=== PATIENT | female | born 1950 | race Caucasian/White ===

== ENCOUNTER → 2016-07-15 | Outpatient (CLI) | payer MEDICAID | LOC: FIMAGING 15:31 | PROVIDERS: ATTEND Radiology Diagnostic Radiology | DX: M24.10 Other articular cartilage disorders, unspecified site (principal); M25.461 Effusion, right knee ==

== ENCOUNTER 2016-09-18 12:52 | Emergency (ER) | payer MEDICAID ==
--- NOTE | 2016-09-18 13:13 | EDPHY ---
H & P Stated Complaint: dizzyness x 3 days/started on wellbutrin 2 weeks ago Time Seen by Provider: 09/18/16 13:10 HPI/ROS: CHIEF COMPLAINT: Dizziness HISTORY OF PRESENT ILLNESS: This patient is a 66 year old female arriving today by private vehicle complaining of dizziness onset on Monday, three days ago. She states she is frustrated because the sensation is keeping her from accomplishing anything. She has recently stopped taking Cymbalta, and began taking Wellbutrin instead about two weeks ago as prescribed by her primary care provider at [facility]. She denies other recent changes in medications. She describes her current sensation of dizziness as lightheadedness and a feeling of being off-balance, with occasional waves of "some kind of dizziness". The sensation is worse with movement and with deep breathing. She endorses episodes of spinning vertigo in the past, but states her current feeling is different. She reports she has experience mild tinnitus over the past two months, and that she has experienced numbness and paresthesias in her hands and feet for the last weeks, no recent change. She denies shortness of breath, but states that she feels like she hasn' t been getting enough oxygen. She denies chest pain, vomiting, hematochezia, fever, or recent illness. She endorses occasional diarrhea. REVIEW OF SYSTEMS: A ten point review of systems was performed and is negative with the exception of the items mentioned in the HPI. - Personal History Current Tetanus/Diphtheria Vaccine: Yes - Medical/Surgical History PMH: 1. Chronic neck pain. Hx Asthma: No Hx Chronic Respiratory Disease: No Hx Diabetes: No Hx Cardiac Disease: No Hx Renal Disease: No Hx Cirrhosis: No Hx Alcoholism: No Hx HIV/AIDS: No Hx Splenectomy or Spleen Trauma: No Other PMH: DDD, degenerative changes back and neck - Social History Smoking Status: Former smoker Additional Social History: Nonsmoker. Non drinker. Lives alone in apartment complex. - Physical Exam Exam: General Appearance: Alert. Vital signs reviewed. Blood pressure 141/73 Eyes: Pupils equal and round, no conjunctival injection, no discharge. Anicteric. ENT, Mouth: Mucous membranes are moist, no oropharyngeal erythema or edema. Neck: No lymphadenopathy, supple. Respiratory: Lungs are clear to auscultation; no wheezes, rales, or rhonchi. Cardiovascular: Regular rate and rhythm; no murmur, rub, or gallop. Gastrointestinal: Abdomen is soft and nontender, no masses or organomegaly, bowel sounds normal. Skin: Warm and dry, no rashes on exposed skin, normal color. Back: Nontender to palpation over the thoracolumbar spine. No CVAT. Extremities: No lower extremity edema, no calf tenderness or swelling. Neurological: Alert and oriented. Moving all four extremities easily and equally. Cranial nerves II through XII are examined and are intact (visual acuity not tested). Strength is 5 over 5 bilaterally with testing of all major motor groups. Sensation is intact to light touch over all 4 extremities. Deep tendon reflexes are 2+ in the biceps and knees bilaterally. Gait is normal. [id number] is performed accurately. Psychiatric: Normal affect. Constitutional: Initial Vital Signs Temperature (C) 36.6 C 09/18/16 12:59 Heart Rate 94 09/18/16 12:59 Respiratory Rate 18 09/18/16 12:59 Blood Pressure 141/73 H 09/18/16 12:59 O2 Sat (%) 95 09/18/16 12:59 O2 Delivery Mode Room Air Allergies/Adverse Reactions: No Known Allergies Allergy (Verified 09/18/16 12:58) Home Medications: Medication Instructions Recorded Wellbutrin 100mg (*) 09/18/16 Medical Decision Making - Diagnostics EKG Interpretation: The 12 lead EKG was interpreted by myself. See hard copy and/or "tracemaster" electronic copy for interpretation. Sinus rhythm, rate 95. ED Course/Re-evaluation: This patient is a 66 year old female presenting today with a three day history of dizziness. Physical exam is unremarkable. Plan for EKG and labs including CBC, chemistries , and troponin. She reports her dizziness is both a sensation of lightheadedness and occasionally there is some spinning involved. Will try a dose of oral meclizine. Patient re-examined at 2:30 p.m. Labs have been reviewed and are normal. Orthostatic vital signs are normal. She states she is feeling worse currently. Discussed discharge. The patient would like to drive herself home. Offered CT scan of the head to rule out acute processes causing her dizziness. She refuses imaging at this time. Tested standing, gait. When she is walking, she notes increased dizziness "inside her head". It is possible that her dizziness is related to the wellbutrin that she recently started and she has stopped taking that medicaton. It does not seem to be vertigo. I do not find signs of infection (sinus, ear) and do not suspect meningitis. I doubt intracranial hemorrhage or tumor, but these have not been completely ruled out. Neuro exam is normal. Patient reassessed at 3:15pm. She mentioned that she has run out of her oxycodone that she uses to control her chronic neck pain. I informed her I am unable to write her a prescription for oxycodone today, and she should follow up with her pain management provider to discuss this. She states she has an upcoming appointment with a pain clinic, which I encouraged her to keep. She will be discharged home with instructions to follow up with her primary care provider to discuss her medication regimen, and a referral to ENT as needed should her dizziness persist. Return precautions discussed. The patient is comfortable with this plan. Differential Diagnosis: Dizziness including but not limited to peripheral and central causes of vertigo , orthostatic causes including dehydration, and blood loss. Drug seeking is also a possibility, as she has run out of her opiate medication. No signs / symptoms of withdrawal. - Data Points Laboratory Results: Laboratory Results 09/18/16 13:35 09/18/16 13:35 Medications Given: Discontinued Medications Meclizine HCl (Meclizine Hcl) 25 mg PO EDNOW ONE Stop: 09/18/16 13:30 Last Admin: 09/18/16 14:09 Dose: 25 mg Departure - Departure Disposition: Home, Routine, Self-Care Clinical Impression: Dizziness Condition: Good Instructions: Dizziness (ED) Additional Instructions: 1. Follow up with your primary care provider as needed next week to discuss your symptoms and medication regimen. 2. Keep your appointment with the pain clinic as scheduled. 3. If you continue to experience unresolved dizziness, we have referred you to the ENT physician python developer to further evaluate your symptoms. 4. Return to the ED if you experience weakness or numbness on one side of your body, slurred speech, fever, vomiting, or other worsening of condition. Referrals: [facility],. [Clinic] - As per Instructions Shen Dorman MD [Medical Doctor] - As per Instructions Report Scribed for: Chrissy Mix Report Scribed by: Tara Og Date of Report: 09/18/16 Time of Report: 13:35 Physician Review and Approval Statement: 09/18/16 13:13 Portions of this note were transcribed by the nurses medical assistants phlebotomists. I, Dr. Chrissy Mix, personally performed the history, physical exam, and medical decision- making; and confirmed the accuracy of the information in the transcribed note.
[2016-09-18] MEDS ORDERED: MECLIZINE HCL 25 MG TAB PO ONE (13:29)
[2016-09-18 13:48] LABS: % IMMATURE GRANULYOCYTES 0.1 % (0.0-1.1); ABSOLUTE IMMATURE GRANULOCYTES 0.01 10^3/uL (0.00-0.10); ADD DIFF? NO; ADD MORPH? NO; ADD SCAN? NO; ATYPICAL LYMPHOCYTE FLAG 20 (0-99); FRAGMENT RBC FLAG 0 (0-99); HEMATOCRIT 43.3 % (38.0-47.0); HEMOGLOBIN 14.7 g/dL (12.6-16.3); LEFT SHIFT FLG 0 (0-99); LIPEMIA HEMOLYSIS FLAG 90 (0-99); MEAN CELL HEMOGLOBIN 29.8 pg (27.9-34.1); MEAN CELL HEMOGLOBIN CONCENTR. 33.9 g/dL (32.4-36.7); MEAN CELL VOLUME 87.8 fL (81.5-99.8); MEAN PLATELET VOLUME 11.6 fL (8.7-11.7); PLATELET CLUMPS FLAG 0 (0-99); PLATELET COUNT 312 10^3/uL (150-400); RED BLOOD CELL COUNT 4.93 10^6/uL (4.18-5.33); RED CELL DISTRIBUTION WIDTH 13.2 % (11.5-15.2)
--- NOTE | 2016-09-18 13:54 | CPEKG ---
Heart Rate: 95 RR Interval: 632 P-R Interval: 152 QRSD Interval: 82 QT Interval: 376 QTC Interval: 473 P [place]: 41 QRS [place]: 72 T Wave [place]: -23 EKG Severity - ABNORMAL ECG - EKG Impression: SINUS RHYTHM EKG Impression: BORDERLINE INFERIOR Q WAVES EKG Impression: NONSPECIFIC T ABNORMALITIES, INFERIOR LEADS EKG Impression: INFEROLATERAL ST/T WAVE CHANGES ARE NEW IN COMPARISON TO PRIOR Electronically Signed By: Temo Lin 22-Sep-2016 12:18:30
[2016-09-18 14:02] LABS: ANION GAP 11 mEq/L (8-16); CALCIUM 9.4 mg/dL (8.5-10.4); CARBON DIOXIDE 22 mEq/l (22-31); CHLORIDE 105 mEq/L (97-110); CREATININE 0.6 mg/dL (0.6-1.0); GLOMERULAR FILTRATION RATE > 60; GLUCOSE 90 mg/dL (70-100); POTASSIUM 3.7 mEq/L (3.5-5.2); SODIUM 138 mEq/L (134-144)
[2016-09-18 14:13] LABS: CREATINE KINASE-MB FRACTION 1.36 ng/mL (0-3.19); TROPONIN I < 0.012 ng/mL (0-0.034)
[2016-09-18 15:38] VITALS: BP 130/74; PULSE 80; RESP 14; TEMP 98.4; O2SAT 94
== END 2016-09-18 15:38 | disposition home or self-care (01) ==
DX: R42 Dizziness and giddiness (principal); Z87.891 Personal history of nicotine dependence

== ENCOUNTER → 2017-03-14 | Outpatient (CLI) | payer MEDICAID | LOC: FIMAGING 13:49 | DX: G89.29 Other chronic pain (principal); M51.37 Other intervertebral disc degeneration, lumbosacral region ==

== ENCOUNTER → 2017-05-16 | Outpatient (CLI) | payer MEDICAID | LOC: FIMAGING 14:21 | DX: M54.2 Cervicalgia (principal); M54.5 Low back pain; M50.30 Other cervical disc degeneration, unspecified cervical region; R53.82 Chronic fatigue, unspecified; G89.4 Chronic pain syndrome; M48.02 Spinal stenosis, cervical region; M40.204 Unspecified kyphosis, thoracic region; Z79.891 Long term (current) use of opiate analgesic ==

== ENCOUNTER 2017-11-23 13:01 | Emergency (ER) | payer OTHER, MEDICAID ==
[2017-11-23] MEDS ORDERED: NS 1,000 ML IV ONE (13:37)
[2017-11-23] MEDS ORDERED: IOPAMIDOL (ISOVUE-300) 100 ML BTL ONE (13:43)
--- NOTE | 2017-11-23 13:44 | EDPHY ---
H & P Stated Complaint: abd pain Time Seen by Provider: 11/23/17 13:24 HPI/ROS: CHIEF COMPLAINT: Abdominal distention HISTORY OF PRESENT ILLNESS: The patient is a 67-year-old female who comes to the emergency department complaining of abdominal distention for the last 3 years. She states that during the 1st year of her symptoms she had multiple tests including swallow studies and MRIs but no diagnosis was ultimately made. She has not pursued further workup over the last 2 years. She does state however that she saw Dr. Farrar 1 month ago and they want to do an upper endoscopy. She has not had a fever. She states that she was having some vomiting last week but has not since. She continues to have bowel movements that alternate between diarrhea and constipation. No urinary symptoms. No vaginal symptoms. She comes here today because she feels like no one is helping her. Symptoms have not worsened or changed. REVIEW OF SYSTEMS: Constitutional: denies: chills, fever, recent illness, recent injury EENTM: denies: blurred vision, double vision, nose congestion Respiratory: denies: cough, shortness of breath Cardiac: denies: chest pain, irregular heart rate, lightheadedness, palpitations Gastrointestinal/Abdominal: denies: abdominal pain, diarrhea, nausea, vomiting, blood streaked stools Genitourinary: denies: dysuria, frequency, hematuria, pain Musculoskeletal: denies: joint pain, muscle pain Skin: denies: lesions, rash, jaundice, bruising Neurological: denies: headache, numbness, paresthesia, tingling, dizziness, weakness Hematologic/Lymphatic: denies: blood clots, easy bleeding, easy bruising Immunologic/allergic: denies: HIV/AIDS, transplant EXAM: GENERAL: Well-appearing, well-nourished and in no acute distress. HEAD: Atraumatic, normocephalic. EYES: Pupils equal round and reactive to light, extraocular movements intact, sclera anicteric, conjunctiva are normal. ENT: TMs normal, nares patent, oropharynx clear without exudates. Moist mucous membranes. NECK: Normal range of motion, supple without lymphadenopathy or JVD. LUNGS: Breath sounds clear to auscultation bilaterally and equal. No wheezes rales or rhonchi. HEART: Regular rate and rhythm without murmurs, rubs or gallops. ABDOMEN: Distension, nontender BACK: No CVA tenderness, no spinal tenderness, step-offs or deformities EXTREMITIES: Normal range of motion, no pitting or edema. No clubbing or cyanosis. NEUROLOGICAL: Cranial nerves II through XII grossly intact. Normal speech, normal gait. 5/5 strength, normal movement in all extremities, normal sensation PSYCH: Normal mood, normal affect. SKIN: Warm, dry, normal turgor, no visible rashes or lesions. Source: Patient Exam Limitations: No limitations - Personal History Current Tetanus/Diphtheria Vaccine: Yes - Medical/Surgical History Hx Asthma: No Hx Chronic Respiratory Disease: No Hx Diabetes: No Hx Cardiac Disease: No Hx Renal Disease: No Hx Cirrhosis: No Hx Alcoholism: No Hx HIV/AIDS: No Hx Splenectomy or Spleen Trauma: No Other PMH: DDD, degenerative changes back and neck - Family History Significant Family History: No pertinent family hx - Social History Smoking Status: Former smoker Alcohol Use: Sober Drug Use: None Constitutional: Initial Vital Signs Temperature (C) 36.5 C 11/23/17 13:11 Heart Rate 90 11/23/17 13:11 Respiratory Rate 18 11/23/17 13:11 Blood Pressure 137/84 H 11/23/17 13:11 O2 Sat (%) 93 11/23/17 13:11 O2 Delivery Mode Room Air Allergies/Adverse Reactions: No Known Allergies Allergy (Verified 11/23/17 13:14) Home Medications: Medication Instructions Recorded Wellbutrin 100mg (*) 09/18/16 DULoxetine 11/23/17 Medical Decision Making ED Course/Re-evaluation: 2:45 p.m. We discussed the lab and imaging results which are reassuring. Patient is somewhat frustrated that we do not have an answer. I suggested she follow up with the specialist. She has already seen Dr. Doran and will follow up with him. She declines further workup or testing at this time. Differential Diagnosis: Partial list of the Differential diagnosis considered include but were not limited to; constipation, irritable bowel and although unlikely based on the history and physical exam, I also considered obstruction, ischemia, biliary disease, ulcerative colitis. I discussed these differential diagnoses and the plan with the patient as well as the usual and expected course. The patient understands that the diagnosis is provisional and that in medicine we are not always correct and that further workup is often warranted. Usual and customary warnings were given. All of the patient's questions were answered. The patient was instructed to return to the emergency department should the symptoms at all worsen or return, otherwise to followup with the physician as we discussed. - Data Points Laboratory Results: Laboratory Results 11/23/17 13:50 11/23/17 13:50 Medications Given: Discontinued Medications Sodium Chloride (Ns) 1,000 mls @ 0 mls/hr IV EDNOW ONE; Wide Open PRN Reason: Protocol Stop: 11/23/17 13:38 Last Admin: 11/23/17 14:03 Dose: 1,000 mls Departure - Departure Disposition: Home, Routine, Self-Care Clinical Impression: Constipation Qualifiers: Constipation type: unspecified constipation type Qualified Code(s): K59.00 - Constipation, unspecified Condition: Fair Instructions: Constipation (ED) Additional Instructions: Take MiraLax and titrate as discussed. 1 cap full every hour until satisfactory results Referrals: Aurelio Wright MD [Primary Care Provider] - As per Instructions Kilo Doran MD [Medical Doctor] - 5-7 days, call for appt.
[2017-11-23 14:03] LABS: PLATELET COUNT 255 10^3/uL (150-400)
[2017-11-23 15:04] VITALS: BP 132/75
== END 2017-11-23 15:00 | disposition home or self-care (01) ==
DX: K59.00 Constipation, unspecified (principal); E86.9 Volume depletion, unspecified
CPT/HCPCS: 74177; 96360; 99285; Q9967